=== PATIENT | male | born 1990 | race Caucasian/White ===

== ENCOUNTER 2023-06-08 07:54 | Observation (INO) | payer OTHER ==
[2023-06-08] MEDS ORDERED: Thiamine HCl 200 MG/2 ML VIAL ONE (08:09)
[2023-06-08 08:19] LABS: #Basophils 0.1 thou/uL (0.0-0.2); #Eosinphils 0.2 thou/uL (0.0-0.7); #Monocytes 0.7 thou/uL (0.11-0.59); #Neutrophils 3.2 thou/uL (1.40-6.50); %Basophils 0.7 % (0.0-1.0); %Eosinophils 2.1 % (0.0-10.0); %Lymphocytes 42.7 % (21.0-51.0); %Monocytes 9.4 % (0.0-10.0); %Neutrophils 44.5 % (42.0-75.0); Hematocrit 50.3 % (42.0-52.0); Mean Corpuscular HGB CONC 33.8 g/dL (32.0-36.0); Mean Corpuscular Hemoglobin 31.5 pg (27.0-31.0); Mean Corpuscular Volume 93.3 fl (78.0-98.0); Mean Platelet Volume 9.6 fL (7.4-10.4); Platelet Count 257 10x3/uL (130-400); RBC Distribution Width 12.1 % (11.5-14.5); Red Blood Cell (RBC) Count 5.39 mill/uL (4.70-6.10); White Blood Cell (WBC) Count 7.2 10x3/uL (4.8-10.8)
[2023-06-08] MEDS ORDERED: LORazepam 2 MG/ML SYR.(CARPUJECT) ONE (08:21)
[2023-06-08] MEDS ORDERED: Diazepam 10 MG/2 ML SYRINGE ONE ×3 (08:32→10:55)
[2023-06-08 08:51] LABS: Acetaminophen Less than 10 mcg/mL (10.0-30.0); Alcohol Less than 10.0 mg/dL (Less than 10); Lipase 60 U/L (8-78); Magnesium 2.1 mg/dL (1.6-2.6); Salicylate Less than 8.0 mg/dL (15.0-30.0)
[2023-06-08 08:54] LABS: ALT (SGPT) 59 U/L (8-55); AST (SGOT) 58 U/L (5-34); Albumin 5.2 g/dL (3.5-5.0); Alkaline Phosphatase 91 U/L (40-110); Anion Gap 16 mmol/L (10-20); BUN (Urea Nitrogen) 19 mg/dL (8.9-20.6); Calc. Creatinine Clearance 0 mL/min (70-130); Carbon Dioxide 24 mmol/L (22-29); Chloride 103 mmol/L (98-107); Estimated GFR 73; Globulin 3.8 g/dL (2.4-3.5); Glucose 105 mg/dL (70-105); Potassium 4.4 mmol/L (3.5-5.1); Sodium 139 mmol/L (136-145)
[2023-06-08 10:45] LABS: Amphetamine Not Detected (NotDetected); Barbiturates Screen Not Detected (NotDetected); Benzodiazepine Screen Not Detected (NotDetected); Cocaine Metabolite Screen Not Detected (NotDetected); Methadone Not Detected (NotDetected); Methamphetamine Not Detected (NotDetected); Opiate Screen Not Detected (NotDetected); Oxycodone Screen Not Detected (NotDetected); Phencyclidine (PCP) Not Detected (NotDetected); THC/Cannabinoid Screen Detected (NotDetected); Tricyclic Screen Not Detected (NotDetected)
[2023-06-08] MEDS ORDERED: Ondansetron ODT 4 MG TAB PO PRN (12:47)
[2023-06-08] MEDS ORDERED: Acetaminophen 325 MG TAB PO PRN (12:47)
[2023-06-08] MEDS ORDERED: Lorazepam 1 MG TAB PO PRN (12:48)
[2023-06-08] MEDS ORDERED: Lorazepam 2 MG/ML VIAL IM PRN (12:48)
[2023-06-08] MEDS ORDERED: Electrolyte Replacement Protocol 1 EACH FS SCH (13:00)
[2023-06-08] MEDS ORDERED: Multivit, Therapeutic 1 TAB PO SCH (13:15)
[2023-06-08] MEDS ORDERED: Folic Acid 1 MG TAB PO SCH (13:15)
[2023-06-08 14:18] VITALS: BP 149/90; TEMP 98.2
[2023-06-08 14:31] VITALS: BMI 34.7
[2023-06-08] MEDS: Lorazepam 1 MG TAB PO SCH ×2 (14:41→18:37)
[2023-06-08] MEDS ORDERED: FLU VACC QS2023-24(6MOS UP)/PF 60 MCG/0.5 ML SYRINGE IM ONE (15:00)
[2023-06-09] MEDS ORDERED: Thiamine HCl 200 MG/2 ML VIAL SLOW IVP SCH (08:00)
[2023-06-09] MEDS ORDERED: Multivit, Therapeutic 1 TAB PO SCH (09:00)
[2023-06-09] MEDS ORDERED: Folic Acid 1 MG TAB PO SCH (09:00)
[2023-06-09] MEDS ORDERED: Lorazepam 1 MG TAB PO PRN (12:48)
[2023-06-10] MEDS ORDERED: Lorazepam 1 MG TAB PO PRN (12:48)
[2023-06-10] MEDS ORDERED: Lorazepam 0.5 MG TAB PO SCH (13:00)
[2023-06-11] MEDS ORDERED: Lorazepam 0.5 MG TAB PO PRN (12:48)
[2023-06-12] MEDS ORDERED: Thiamine 100 MG TAB PO SCH (08:00)
== END 2023-06-08 18:49 | disposition left against medical advice (07) ==
LOC: ERS 07:54 → ERHOLD 12:22 → T4-A 13:32
PROVIDERS: ADMIT Family Medicine; ATTEND Nurse Practitioner Acute Care
DX: F10.239 Alcohol dependence with withdrawal, unspecified (principal); I10 Essential (primary) hypertension; K58.9 Irritable bowel syndrome, unspecified; F41.9 Anxiety disorder, unspecified; K21.9 Gastro-esophageal reflux disease without esophagitis; F11.11 Opioid abuse, in remission; F12.90 Cannabis use, unspecified, uncomplicated; Z79.899 Other long term (current) drug therapy
CPT/HCPCS: 80053; 80306; 80307; 83690; 83735; 85025; 93005; 94760; G0378; J2060; J3360; J3411